=== PATIENT | male | born 1990 | race Caucasian/White ===

== ENCOUNTER 2020-08-16 14:05 | Emergency (ER) | payer BC ==
[~2020-08-16] VITALS: Ht 182.9 cm; Wt 81.7 kg
[2020-08-16] MEDS ORDERED: CEPHALEXIN500 M1 PO (14:39)
== END 2020-08-16 14:54 | disposition home or self-care (01) ==
LOC: ED 14:05
DX: S91.341A Puncture wound with foreign body, right foot, initial encounter (principal); W22.8XXA Striking against or struck by other objects, initial encounter
CPT/HCPCS: 28190; 99283-25